=== PATIENT | female | born 1945 | race Caucasian/White ===

== ENCOUNTER → 2016-12-09 | Outpatient (CLI) | payer OTHER ==
--- NOTE | 2016-12-10 18:46 | MA ---
Screening Digital Mammogram With iCAD Analysis Clinical Indications: Routine screening. Patient has had right breast cancer treated with lumpectomy and radiation. A sister was diagnosed with cancer in her 60s and her niece in her 40s. Technique: Standard cephalocaudal projections are obtained. Digital breast tomosynthesis was performe d in the MLO projection with reconstruction at 1.0 mm slice thickness and composite MLO views reconst ructed. This examination is processed by the iCAD computer aided detection system. Comparison: September 2014, August 2013, December 2011, October 2011, August 2011, June 2010. Breast density: Type D: Extremely dense. Findings: CAD was reviewed. Architectural change in the upper posterior right breast at the lumpectom y site is stable. No masses, suspicious calcifications or secondary signs of malignancy are seen. The re has been no significant change in the appearance of either breast. Impression: Benign post lumpectomy mammography, BI-RADS 2. Recommendation: Routine mammographic screening in one year as long as physical examination is negativ e in this patient with extremely dense breast parenchyma. [facility] will send a result letter to the patient. Negative mammography should not preclude additional workup of a clinically suspicious finding. The patient's information is entered into a reminder system with a target due date for her next mammo gram.
== END ==
LOC: FIMAGING 11:53
DX: Z12.31 Encounter for screening mammogram for malignant neoplasm of breast (principal); Z85.3 Personal history of malignant neoplasm of breast; Z80.3 Family history of malignant neoplasm of breast
CPT/HCPCS: G0202

== ENCOUNTER → 2017-01-27 | Outpatient (CLI) | payer OTHER | LOC: BHFA 14:00 | PROVIDERS: ATTEND Internal Medicine Cardiovascular Disease | DX: I25.10 Atherosclerotic heart disease of native coronary artery without angina pectoris (principal); I47.2 Ventricular tachycardia ==

== ENCOUNTER 2017-02-16 10:44 | Day surgery (SDC) | payer OTHER ==
[2017-02-16] MEDS ORDERED: LIDOCAINE 1% 5 ML SDV ID PRN (11:10)
[2017-02-16] MEDS ORDERED: LIDOCAINE 1% 5 ML SDV ONE (11:36)
[2017-02-16] MEDS ORDERED: LR 1,000 ML IV ONE (11:45)
[2017-02-16] MEDS ORDERED: MIDAZOLAM 2 MG/2 ML VIAL ONE (11:55)
[2017-02-16] MEDS ORDERED: ETOMIDATE 20 MG/10 ML VIAL ONE ×2 (12:03→12:04)
[2017-02-16] MEDS ORDERED: fentaNYL 100 MCG/2 ML INJ ONE ×2 (12:03→13:16)
--- NOTE | 2017-02-16 13:50 | GOP ---
[f rep st] OPERATIVE REPORT DATE OF OPERATION: 02/16/2017 SURGEON: Davis Gómez MD ANESTHESIA: General. PREOPERATIVE DIAGNOSIS: Symptomatic retained hardware, right calcaneus. POSTOPERATIVE DIAGNOSIS: 1. Symptomatic retained hardware, right calcaneus. 2. Achilles tenosynovitis. PROCEDURE PERFORMED: 1. Hardware removal, right calcaneus. 2. Achilles tenosynovectomy. 3. Intraoperative use of fluoroscopy. FINDINGS: ESTIMATED BLOOD LOSS: Minimal. INDICATIONS: Patient is a 71-year-old who had previously undergone open reduction, internal fixatio n of a calcaneus fracture. The patient had clinical and radiographic evidence of a healed fracture in favorable position, was having pain over her heel in the location of the screw heads of the hardw are. It was felt that her pain was hardware related. Based on her persistence of symptoms, she is interested in pursuing hardware removal. The patient acknowledged she understood the potential risk s of the operation, including, but not limited to, bleeding, infection, neurovascular damage, leadin g to loss of limb and limb function, pain or functional limitations despite operative treatment, and anesthetic risks. She additionally acknowledged that there was a small risk of re-fracture with hagen rdware removal, as it was only 6 months following her surgery, but that the likelihood was that favo rable healing had occurred to the point where safe hardware removal could be considered. DESCRIPTION OF PROCEDURE: The patient was brought in the operating room after IV antibiotics were a dministered. She was placed in a supine position, where general anesthetic was administered. A richard rniquet was placed on her right calf, and the patient was transferred to a left lateral decubitus po sition on the operating table with beanbag support, axillary roll, and padding of all bony prominenc es. The right lower leg was prepped and draped in a standard sterile fashion. After Greg wrap exsan guination, tourniquet was inflated to 250. A portion of her previous incision was utilized for expo sure. Skin and subcutaneous tissue were sharply incised. Sharp dissection was carried lateral to t he Achilles tendon. There was noted to be adherence, synovitic changes around the tendon. The syno vitic tissue was sharply debrided. There was some thickening in the tendon, consistent with tendino sis. It was not felt that debridement of the tendon would be prudent at this time because of potent ial for FHL transfer would be necessary, and this had not been discussed with the patient, nor was i t felt to be appropriate at this stage in her symptom course. Under fluoroscopic guidance, the loca tion of the screw heads was identified with a fine-tipped curette. The screws were identified and r emoved without difficulty, removing the associated washer, along with the distal screw. Attention was directed toward closure. The subcutaneous tissue was closed with 3-0 Vicryl suture in an interrupted fashion. Skin was closed with 4-0 nylon interrupted sutures. 0.5% Marcaine without epinephrine was injected in the wound sites. The wounds were dressed with sterile Adaptic, 4 x 4, and Kerlix. Patient tolerated the procedure well, was taken to the recovery room extubated, in stab le condition postoperatively. All sponge, needle, and instrument counts were reported as being rosemarie ect. DRAINS: None. COMPLICATIONS: None. PLAN: The patient will be discharged home, weightbearing as tolerated. /[id number]/MODL
== END 2017-02-16 14:39 | disposition home or self-care (01) ==
LOC: FSGY 10:44
PROVIDERS: ATTEND Orthopaedic Surgery Foot and Ankle Surgery
PROC: 0QPL04Z Removal of Internal Fixation Device from Right Tarsal, Open Approach (ICD-10-PCS; principal; 2017-02-16 12:30)
DX: T84.84XA Pain due to internal orthopedic prosthetic devices, implants and grafts, initial encounter (principal); M65.871 Other synovitis and tenosynovitis, right ankle and foot
CPT/HCPCS: J0690; J2250; J3010